=== PATIENT | female | born 1985 | race Caucasian/White ===

== ENCOUNTER 2016-03-09 07:19 | Emergency (ER) | payer OTHER ==
[~2016-03-09 07:19] MED LIST: ALBU8I INH; PREN0.01 PO
--- NOTE | 2016-03-09 08:32 | HHI.HP ---
HPI Chief Complaint Contractions Travel History International Travel<30 Days: No Contact w/Intl Traveler<30Days: No Known Affected Area: No History of Present Illness HPI 31 y/o at 39/2 weeks gestation determined by LMP, presenting with contractions. The contraction-like pain started last night around 6 PM. She reports that it was a diffuse lower back pain that was constant. She said there was no persistent time interval between this pain. It was a dull achy pain, that started in her lower back and radiated into her lower pelvis. She endorses + FM, and denies any LOF or vaginal bleeding. She lost her mucus plug yesterday afternoon. No visual changes, CP, SOB, fevers/chills, or dysuria. She has been having headaches for the past 2 days, that are over her temporal lobes, and she also reports a "stiff neck." BP is at goal in OB triage. Para: 2 : 0 History Past Medical History Narrative Medical Asthma Medical History: Denies Significant Hx Obstetric History Obstetric History 1 previous Past Surgical History Narrative Surgical Tonsillectomy Family History Family History: Negative Social History Alcohol Use: No Tobacco Use: Yes (approximately 5 cigarettes daily throughout her ) Substance Abuse: No Allergies-Medications (Allergen,Severity, Reaction): Coded Allergies: Doxycycline (Verified Allergy, Mild, 07/10/15) Home Meds Reported Medications Vitamins 1 Tab PO DAILY 07/10/15 Albuterol Sulfate 8 GM Inhaler (Ventolin Hfa)8 Gm Aero2 Puff INH Q4 PRN ( WHEEZING) #1 BOX * SHAKE WELL BEFORE USE * 07/10/15 Physical Exam Narrative GENERAL: Right pupil 2 mm in size, left pupil 8 mm in size. Appears comfortable. SKIN: Warm and dry. HEAD: Normocephalic and atraumatic. EYES: No scleral icterus. No injection or drainage. ENT: No nasal drainage noted. Mucous membranes pink. Airway patent. NECK: Supple, trachea midline. No JVD. CARDIOVASCULAR: Regular rate and rhythm without murmurs, gallops, or rubs. RESPIRATORY: Breath sounds equal bilaterally. No accessory muscle use. BREASTS: Bilateral exam showed no masses , no retractions, no nipple discharge. ABDOMEN/GI: Abdomen soft, non-tender, bowel sounds present, no rebound, no guarding Gravid to 39 weeks size GENITOURINARY: External Genitalia: intact and normal in appearance Cervix: 1 cm Effacement: 70% Station: -1 Presentation: vertex Membranes: intact Uterine Contractions: occassional FHT's: Category: 1 Baseline: 140 Reactive: yes Variability: moderate Decels: none EXTREMITIES: No cyanosis or edema. BACK: Nontender without obvious deformity. No CVA tenderness. NEUROLOGICAL: Awake and alert. Motor and sensory grossly within normal limits. Five out of 5 muscle strength in all muscle groups. Normal speech. Assessment/Plan Problem List: (1) False labor after 37 completed weeks of gestation Assessment and Plan 31 y/o at 39/2 weeks gestation presenting with contractions. IUP - at 39/2 weeks Category 1 tracing Cervix 1 cm, 70% effaced, -2 station [place]: occasional contractions Impression: Likely Bruno-Villafana contractions, false labor. Plan: * NST, reassuring * Check U/A * Labor precautions * PO hydration * Tylenol PRN headaches, lower back pain wdw Coleman Peacock MD R2 Mar 09, 2016 08:32
--- NOTE | 2016-03-09 09:29 | PD ---
HPI Chief Complaint Contractions Travel History International Travel<30 Days: No Contact w/Intl Traveler<30Days: No Known Affected Area: No History of Present Illness HPI 31 y/o at 39/2 weeks gestation determined by LMP, presenting with contractions. The contraction-like pain started last night around 6 PM. She reports that it was a diffuse lower back pain that was constant. She said there was no persistent time interval between this pain. It was a dull achy pain, that started in her lower back and radiated into her lower pelvis. She endorses + FM, and denies any LOF or vaginal bleeding. She lost her mucus plug yesterday afternoon. No visual changes, CP, SOB, fevers/chills, or dysuria. She has been having headaches for the past 2 days, that are over her temporal lobes, and she also reports a "stiff neck." BP is at goal in OB triage. History Past Medical History Narrative Medical Asthma Obstetric History Obstetric History x 1 Past Surgical History Narrative Surgical Tonsillectomy Family History Family History: Negative Social History Alcohol Use: No Tobacco Use: Yes (5 cigarettes daily) Substance Abuse: No Allergies-Medications (Allergen,Severity, Reaction): Coded Allergies: Doxycycline (Verified Allergy, Mild, 07/10/15) Home Meds Reported Medications Vitamins 1 Tab PO DAILY 07/10/15 Albuterol Sulfate 8 GM Inhaler (Ventolin Hfa)8 Gm Aero2 Puff INH Q4 PRN ( WHEEZING) #1 BOX * SHAKE WELL BEFORE USE * 07/10/15 Physical Exam Narrative GENERAL: Right pupil 2 mm in size, left pupil 8 mm in size. Appears comfortable. SKIN: Warm and dry. HEAD: Normocephalic and atraumatic. EYES: No scleral icterus. No injection or drainage. ENT: No nasal drainage noted. Mucous membranes pink. Airway patent. NECK: Supple, trachea midline. No JVD. CARDIOVASCULAR: Regular rate and rhythm without murmurs, gallops, or rubs. RESPIRATORY: Breath sounds equal bilaterally. No accessory muscle use. BREASTS: Bilateral exam showed no masses , no retractions, no nipple discharge. ABDOMEN/GI: Abdomen soft, non-tender, bowel sounds present, no rebound, no guarding Gravid to 39 weeks size GENITOURINARY: External Genitalia: intact and normal in appearance Cervix: 1 cm Effacement: 70% Station: -1 Presentation: vertex Membranes: intact Uterine Contractions: occassional FHT's: Category: 1 Baseline: 140 Reactive: yes Variability: moderate Decels: none EXTREMITIES: No cyanosis or edema. BACK: Nontender without obvious deformity. No CVA tenderness. NEUROLOGICAL: Awake and alert. Motor and sensory grossly within normal limits. Five out of 5 muscle strength in all muscle groups. Normal speech. Data Data Orders Vital Signs (Adult) .ON ADMISSION (03/09/16 08:41) ^ Labor Status (03/09/16 08:41) Urinalysis - C+S If Indicated (03/09/16 08:41) ^ Non Stress Test (03/09/16 08:41) ^ Heart DANA.QSHIFT (03/09/16 08:41) ^ Heart DANA.QSHIFT (03/09/16 08:41) MDM Medical Record Reviewed: Yes Plan 31 y/o at 39/2 weeks gestation presenting with contractions. IUP - at 39/2 weeks Category 1 tracing Cervix 1 cm, 70% effaced, -2 station [place]: occasional contractions Impression: Likely Pan-Villafana contractions, false labor. Plan: * NST, reassuring * Check U/A * Labor precautions * PO hydration * Tylenol PRN headaches, lower back pain wdw Dr. Zimmerman Disposition: 01 DISCHARGE HOME Condition: Good Coleman Perea MD R2 Mar 09, 2016 09:29
[2016-03-09 10:28] LABS: BLOOD, URINE MOD (NEG); GLUCOSE,URINE NEG (NEG); KETONE, URINE NEG (NEG); NITRITE,URINE NEG (NEG); URINE COLOR YELLOW (YELLW/STRAW)
[2016-03-09 10:32] LABS: BACTERIA, URINE FEW /hpf; CALCIUM OXALATE CRYSTALS,URINE FEW /hpf; MUCUS URINE MOD /lpf (OCC); SQUAMOUS EPITHELIAL CELL URINE 3 /hpf (0-5)
[2016-03-09 10:33] LABS: COMMENT (UR) CULT NOT INDICATED; CULTURE IF INDICATED CULT NOT INDICATED
== END 2016-03-09 11:07 | disposition home or self-care (01) ==
LOC: HOBED 07:19
DX: O47.1 False labor at or after 37 completed weeks of gestation (principal); Z3A.39 39 weeks gestation of pregnancy
CPT/HCPCS: 59025; 81001

== ENCOUNTER 2016-03-10 19:56 | Inpatient (IN) | payer OTHER ==
[~2016-03-10] VITALS: Ht 152.4 cm; Wt 73.9 kg
--- NOTE | 2016-03-10 20:47 | HHI.HP ---
History & Physical H&P HPI Travel History International Travel<30 Days: No Contact w/Intl Traveler<30Days: No Known Affected Area: No History of Present Illness HPI This patient is a 31-year-old 2 para 0 presently at 39 weeks and 3 days she presents with the chief complaint of spontaneous rupture of membranes at 7: 30 clear fluid with subsequent onset of regular contractions every 2 minutes care with HOGA course is significant for positive group B strep she has a history of Suboxone however is presently on no medication baseline blood pressure 102/69 about a 50 pound weight gain her EDC is March 14, 2016 [place] positive rubella immune GC Chlamydia negative hepatitis-negative HIV-negative History (Limited) History Past Medical History Narrative Medical Allergy to doxycycline she has a history of asthma Obstetric History Obstetric History VIP 1 Past Surgical History Narrative Surgical Tonsillectomy D&C 4 VIP Family History Family History: Negative Social History Alcohol Use: No Tobacco Use: Yes (half a pack per day) Substance Abuse: No Allergies-Medications Allergies-Medications (Allergen,Severity, Reaction): Coded Allergies: Doxycycline (Verified Allergy, Mild, 07/10/15) Home Meds Reported Medications Vitamins 1 Tab PO DAILY 07/10/15 Albuterol Sulfate 8 GM Inhaler (Ventolin Hfa)8 Gm Aero2 Puff INH Q4 PRN ( WHEEZING) #1 BOX * SHAKE WELL BEFORE USE * 07/10/15 ROS Review of Systems Gastrointestinal: Abdominal Pain (contractions every 2 minutes) Genitourinary: Other (clear fluid per vagina) Physical Exam Physical Exam Narrative GENERAL: Well-nourished, well-developed patient. Alert oriented 3 and cooperative in mild distress secondary to uterine contractions CARDIOVASCULAR: Regular rate and rhythm without murmurs, gallops, or rubs. RESPIRATORY: Breath sounds equal bilaterally. No accessory muscle use. ABDOMEN/GI: Gravid term estimated weight 7-1/2 pounds Gravid to [-] weeks size term Fundal Height: [-] GENITOURINARY: External Genitalia: intact and normal in appearance BUS glands: [-] Cervix: [-] Midline Dilatation: [-] 4 cm Effacement: [-] 90% Station: [-] -1 station Presentation: [-] Vertex Membranes: ruptured] clear fluid Uterine Contractions: [-] Every 2 minutes FHT's: Category: [-]1 Baseline: [-] 140 Reactive: [-] + Variability: [-] Moderate wvrn-sm-lgbu variability Decels: [-] 0 EXTREMITIES: No cyanosis or edema. 2+ reflexes BACK: Nontender without obvious deformity. No CVA tenderness. NEUROLOGICAL: Awake and alert. Motor and sensory grossly within normal limits. Five out of 5 muscle strength in all muscle groups. Normal speech. Data Data Data Vital Signs Reviewed: Yes (blood pressures 139/78 pulse is 100 temperatures 98.6) Orders Ob (2e) Additional Admit Info (03/10/16 20:35) MDM MDM Medical Record Reviewed: Yes Interpretation(s) 31-year-old at 39 weeks and 3 days Premature rupture of membranes Active labor Group B strep positive Plan Admit External monitoring IV fluid hydration CBC type and screen Urine drug screen Epidural after preload Penicillin coverage for group B strep Notify Dr. Brar Physician Communication Spoke with Dr. Brar he is aware of the patient's admission Diagnosis Diagnosis: Primary Impression: Premature labor with rupture of membranes in third trimester Additional Impressions: Cigarette smoker one half pack a day or less History of drug use Positive testing for group B Streptococcus Albina Zimmerman MD Mar 10, 2016 20:47 Albina Zimmerman MD Mar 10, 2016 20:47
[2016-03-10] MEDS ORDERED: LACTATED RINGER'S 1000 ML INJ 1,000 ML IV PRN (21:23)
[2016-03-10] MEDS: LACTATED RINGER'S 1000 ML INJ 1,000 ML IV SCH ×2 (21:23→23:41)
[2016-03-10] MEDS ORDERED: CITRIC ACID-SODIUM CITRATE LIQ 30 ML UDC PO SCH (21:30)
[2016-03-10] MEDS ORDERED: OXYTOCIN 30 UNITS-500ML PREMIX 500 ML IV ONE (21:30)
[2016-03-10] MEDS ORDERED: ONDANSETRON HCL 4 MG/2 ML VIAL IV PRN (21:30)
[2016-03-10] MEDS ORDERED: SODIUM CHLORID 0.9% 500 ML INJ 500 ML IV PRN (21:30)
[2016-03-10] MEDS ORDERED: PENICILLIN G POTASSIUM INJ 5,000,000 UNITS in SODIUM CHLORIDE 0.9% INJ 100 ML IV ONE (21:30)
[2016-03-10] MEDS ORDERED: MINERAL OIL 10 ML VIAL TOPICAL PRN (21:30)
[2016-03-10] MEDS ORDERED: LIDOCAINE HCL 1% 50 ML VIAL INFIL PRN (21:30)
[2016-03-10] MEDS ORDERED: LIDOCAINE HCL 1% 50 ML VIAL I-DERMAL PRN (21:30)
[2016-03-10] MEDS ORDERED: SODIUM CHLOR 0.9% 1000 ML INJ 1,000 ML IV PRN (21:43)
[2016-03-10] MEDS ORDERED: fentaNYL 2MCG-BUPIV 0.125% INJ 100 ML ONE (21:51)
[2016-03-10 21:54] LABS: AUTOMATED NEUTROPHIL # 7.9 TH/MM3 (1.8-7.7); BASOPHIL % 0.1 % (0.0-2.0); EOSINOPHIL # 0.1 TH/MM3 (0-0.4); EOSINOPHIL % 1.1 % (0.0-4.0); HEMATOCRIT 32.2 % (35.0-46.0); HEMO FLAGS DIFF FINAL; LYMPH % 17.7 % (9.0-44.0); LYMPHOCYTE # 1.9 TH/MM3 (1.0-4.8); MEAN CELL VOLUME 81.7 FL (80.0-100.0); MEAN CORPUSCULAR HEMOGLOBIN 27.8 PG (27.0-34.0); MEAN CORPUSCULAR HGB CONC 34.1 % (32.0-36.0); MONO % 8.5 % (0.0-8.0); NEUT % 72.6 % (16.0-70.0); PLATELET COUNT 209 TH/MM3 (150-450); RED BLOOD COUNT 3.94 MIL/MM3 (4.00-5.30); RED CELL DISTRIBUTION WIDTH 13.5 % (11.6-17.2); WHITE BLOOD COUNT 10.8 TH/MM3 (4.0-11.0)
[2016-03-11] MEDS ORDERED: PENICILLIN G POTASSIUM INJ 2,500,000 UNITS in SODIUM CHLORIDE 0.9% INJ 100 ML IV SCH (01:30)
[2016-03-11] MEDS ORDERED: SODIUM CHLORIDE 0.9% FLUSH 5 ML FLUSH IV PRN (05:15)
[2016-03-11] MEDS ORDERED: ACETAMINOPHEN 325 MG TAB PO PRN (05:15)
[2016-03-11] MEDS ORDERED: BENZOCAINE 20% TOPICAL SPRAY 60 ML CAN TOPICAL PRN (05:15)
[2016-03-11] MEDS ORDERED: ZOLPIDEM TARTRATE 5 MG TAB PO PRN (05:15)
[2016-03-11] MEDS ORDERED: OXYTOCIN 10 UNIT/ML AMP XX ONE (05:15)
[2016-03-11] MEDS ORDERED: WITCH HAZEL 50%/GLYCERIN 12.5% 40 PAD JAR TOPICAL PRN (05:15)
[2016-03-11] MEDS ORDERED: ALUMINUM/MAGNESIUM/SIMETH 30 ML CUP PO PRN (05:15)
[2016-03-11] MEDS ORDERED: ONDANSETRON ODT 4 MG TAB PO PRN (05:15)
--- NOTE | 2016-03-11 05:19 | PD.OB.DELI ---
Anesthesia: Epidural Vaginal Delivery: Normal Presentation: Occiput anterior Nuchal Cord: x2 : Male One Minute : 8 Five Minute : 9 Weight: 6# 4 oz Care: Suctioned Placenta: Spontaneous delivery, Intact, 3 vessel cord Laceration: Vaginal laceration, 2 deg Repair: Sandeep Bustamante MD Mar 11, 2016 05:19
--- NOTE | 2016-03-11 05:20 | HHI.DS ---
Admission Date Mar 10, 2016 at 20:35 Admitting Diagnosis Diagnosis: Vaginal Delivery: Normal : Male Brief History This patient is a 31-year-old 2 para 0 presently at 39 weeks and 3 days she presents with the chief complaint of spontaneous rupture of membranes at 7: 30 clear fluid with subsequent onset of regular contractions every 2 minutes care with HOGA course is significant for positive group B strep she has a history of Suboxone however is presently on no medication baseline blood pressure 102/69 about a 50 pound weight gain her EDC is March 14, 2016 [place] positive rubella immune GC Chlamydia negative hepatitis-negative HIV-negative Pt Condition on Discharge: Good Discharge Disposition: Discharge Home Discharge Instructions Diet Instructions: As Tolerated, No Restrictions Activities You Can Perform: Shower Only-No Bath Activities to Avoid: Driving for 24 hrs, Prolonged Standing, Strenuous Activity , Sexual Activity Sandeep rBar MD Mar 11, 2016 05:20
[2016-03-11] MEDS ORDERED: NO SYSTEM NARCOTICS XX PRN (06:00)
[2016-03-11] MEDS ORDERED: ePHEDrine/NS 50 MG/5 ML SYR IV PRN (06:00)
[2016-03-11] MEDS ORDERED: DO NOT ADMINISTER ANTICOAGULANTS XX PRN (06:00)
[2016-03-11] MEDS ORDERED: fentaNYL 2MCG-BUPIV 0.125% INJ 100 ML EPIDURAL SCH (06:00)
[2016-03-11] MEDS: IBUPROFEN 600 MG TAB PO PRN ×4 (06:24→22:14)
[2016-03-11] MEDS: DOCUSATE SODIUM 50 MG/SENNA 8.6 MG TAB PO PRN ×2 (06:24→21:20)
[2016-03-11] MEDS ORDERED: MEASLES, MUMPS, RUBELLA VACCINE 0.5 ML VIAL SQ ONE (16:00)
[2016-03-11] MEDS ORDERED: DIPHTH/TETANUS/ACEL PERTUSSIS (BOOSTER) 0.5 ML VIAL/PFS IM ONE (16:00)
[2016-03-11] MEDS: SODIUM CHLORIDE 0.9% FLUSH 5 ML FLUSH IV SCH (21:00)
[2016-03-12] MEDS: IBUPROFEN 600 MG TAB PO PRN ×3 (07:56→22:08)
--- NOTE | 2016-03-12 08:30 | HHI.OB ---
Subjective Post Day: 1 Remarks Stable, doing well Objective Objective Remarks GENERAL: Well-nourished, well-developed patient. CARDIOVASCULAR: Regular rate and rhythm without murmurs, gallops, or rubs. RESPIRATORY: Breath sounds equal bilaterally. No accessory muscle use. ABDOMEN/GI: Abdomen soft, non-tender. Fundus: Firm, non-tender at umbilicus. GENITOURINARY: Light to moderate bleeding. EXTREMITIES: No cyanosis or edema, non-tender, without signs of DVT. Medications and IVs Current Medications Medications (Trade) Dose Ordered Sig/Laura Route Start Time Stop Time Status Last Admin Lactated Ringer's 1,000 ml @ 125 mls/hr Q8H IV 03/10/16 21:23 03/10/16 23:41 Lactated Ringer's 1,000 ml @ 3,000 mls/hr Q20M PRN IV 03/10/16 21:23 03/10/16 21:38 (NS 1000 ml Inj) 1,000 ml @ 100 mls/hr Q10H PRN IV 03/10/16 21:43 (Zofran Inj) 4 mg Q6H PRN IV 03/10/16 21:30 03/10/16 22:35 (fentaNYL INJ) 50 mcg Q1H PRN IV PUSH 03/10/16 21:30 Fentanyl Citrate 100 mcg 100 mcg Q1H PRN IV PUSH 03/10/16 21:30 (Pfizerpen-G Inj/ NS Inj) 100 ml @ 200 mls/hr Q4H IV 03/11/16 01:30 03/11/16 01:14 (Muri-Lube Oil) 10 ml UNSCH PRN TOPICAL 03/10/16 21:30 (NS Flush) 2 ml BID IV 03/11/16 09:00 (NS Flush) 2 ml UNSCH PRN IV 03/11/16 05:15 (Tylenol) 650 mg Q4H PRN PO 03/11/16 05:15 03/11/16 21:20 (Motrin) 600 mg Q6H PRN PO 03/11/16 05:15 03/12/16 07:56 (Americaine 20% Top Spr) 1 spray Q4H PRN TOPICAL 03/11/16 05:15 03/11/16 07:52 (Tucks Pads) 1 applic QID PRN TOPICAL 03/11/16 05:15 03/11/16 07:52 (Isela-Colace) 2 tab Q12H PRN PO 03/11/16 05:15 03/11/16 21:20 (Ambien) 5 mg HS PRN PO 03/11/16 05:15 (Mag-Al Plus Susp Liq) 15 ml Q8H PRN PO 03/11/16 05:15 Ondansetron HCl 4 mg 4 mg Q6H PRN PO 03/11/16 05:15 (fentaNYL 2MCG-BUPIV 0.125% INJ) 100 ml @ 0 mls/hr TITRATE EPIDURAL 03/11/16 06:00 (Flu (Quadrivalent) Vaccine Inj) 0.5 ml ONCE ONCE IM 03/12/16 10:00 03/12/16 10:01 Assessment/Plan Assessment and Plan PPD#1, stable, plan discharge for am tomorrow Discharge Planning routine Sandeep Brar MD Mar 12, 2016 08:30
[2016-03-12] MEDS ORDERED: INFLUENZA VIRUS VACCINE (QUADRIVALENT) 0.5 ML SYR IM ONE (10:00)
[2016-03-12] MEDS: DOCUSATE SODIUM 50 MG/SENNA 8.6 MG TAB PO PRN (15:29)
[2016-03-12 19:30] VITALS: BP 111/70; PULSE 77; RESP 18; TEMP 98.6
[2016-03-12] MEDS: SODIUM CHLORIDE 0.9% FLUSH 5 ML FLUSH IV SCH (21:00)
[2016-03-13] MEDS: IBUPROFEN 600 MG TAB PO PRN ×2 (04:37→14:05)
[2016-03-13 08:30] VITALS: BP 121/76; PULSE 73; RESP 18; TEMP 97.8
--- NOTE | 2016-03-13 10:58 | HHI.OB ---
Subjective Post Day: 2 Remarks PPD#2; Doing well, plan discharge today Objective Vitals/I&O Vital Signs Date Time Temp Pulse Resp B/P Pulse Ox O2 Delivery O2 Flow Rate FiO2 03/13/16 08:30 73 18 121/76 03/13/16 08:30 97.8 03/12/16 19:30 98.6 77 18 111/70 Objective Remarks GENERAL: Well-nourished, well-developed patient. CARDIOVASCULAR: Regular rate and rhythm without murmurs, gallops, or rubs. RESPIRATORY: Breath sounds equal bilaterally. No accessory muscle use. ABDOMEN/GI: Abdomen soft, non-tender. Fundus: Firm, non-tender at umbilicus. GENITOURINARY: Light to moderate bleeding. EXTREMITIES: No cyanosis or edema, non-tender, without signs of DVT. Medications and IVs Current Medications Medications (Trade) Dose Ordered Sig/Laura Route Start Time Stop Time Status Last Admin Lactated Ringer's 1,000 ml @ 125 mls/hr Q8H IV 03/10/16 21:23 03/10/16 23:41 Lactated Ringer's 1,000 ml @ 3,000 mls/hr Q20M PRN IV 03/10/16 21:23 03/10/16 21:38 (NS 1000 ml Inj) 1,000 ml @ 100 mls/hr Q10H PRN IV 03/10/16 21:43 (Zofran Inj) 4 mg Q6H PRN IV 03/10/16 21:30 03/10/16 22:35 (fentaNYL INJ) 50 mcg Q1H PRN IV PUSH 03/10/16 21:30 Fentanyl Citrate 100 mcg 100 mcg Q1H PRN IV PUSH 03/10/16 21:30 (Pfizerpen-G Inj/ NS Inj) 100 ml @ 200 mls/hr Q4H IV 03/11/16 01:30 03/11/16 01:14 (Muri-Lube Oil) 10 ml UNSCH PRN TOPICAL 03/10/16 21:30 (NS Flush) 2 ml BID IV 03/11/16 09:00 (NS Flush) 2 ml UNSCH PRN IV 03/11/16 05:15 (Tylenol) 650 mg Q4H PRN PO 03/11/16 05:15 03/11/16 21:20 (Motrin) 600 mg Q6H PRN PO 03/11/16 05:15 03/13/16 04:37 (Americaine 20% Top Spr) 1 spray Q4H PRN TOPICAL 03/11/16 05:15 03/11/16 07:52 (Tucks Pads) 1 applic QID PRN TOPICAL 03/11/16 05:15 03/11/16 07:52 (Isela-Colace) 2 tab Q12H PRN PO 03/11/16 05:15 03/12/16 15:29 (Ambien) 5 mg HS PRN PO 03/11/16 05:15 (Mag-Al Plus Susp Liq) 15 ml Q8H PRN PO 03/11/16 05:15 Ondansetron HCl 4 mg 4 mg Q6H PRN PO 03/11/16 05:15 (fentaNYL 2MCG-BUPIV 0.125% INJ) 100 ml @ 0 mls/hr TITRATE EPIDURAL 03/11/16 06:00 Assessment/Plan Assessment and Plan PPD#2, stable, plan discharge for today Discharge Planning routine Sandeep Brar MD Mar 13, 2016 10:58
--- NOTE | 2016-03-13 11:19 | PD.CIRC ---
Circumcision Procedure Note Procedure: Circumcision Pre-procedure diagnosis: circumcision Post-procedure diagnosis: circumcision Informed Consent: The risks, benefits, indications, potential complications, and alternatives were explained to the patient/family and informed consent obtained. The baby was brought to the procedure room where a time-out was done to ID the patient and the procedure. Performing Physician: Sandeep Brar Anesthesia used: 1% lidocaine injected Type of block: dorsal penile block Device used: Mogen Description: The baby was prepped and draped in a sterile fashion. The procedure followed standard technique. The baby tolerated the procedure well without complication. Findings: Normal genitalia Estimated blood loss: none Specimen: Sandeep Velazco MD Mar 13, 2016 11:19
== END 2016-03-13 15:53 | disposition home or self-care (01) | DRG 775 ==
LOC: HOBED 19:56 → H2EA 20:35 → H1EA 03-11 07:39
PROVIDERS: ADMIT Obstetrics & Gynecology; ATTEND Obstetrics & Gynecology
PROC: 10E0XZZ Delivery of Products of Conception, External Approach (ICD-10-PCS; principal; 2016-03-11)
PROC: 0KQM0ZZ Repair Perineum Muscle, Open Approach (ICD-10-PCS; 2016-03-11)
DX: O99.334 Smoking (tobacco) complicating childbirth (principal); F17.210 Nicotine dependence, cigarettes, uncomplicated; O99.52 Diseases of the respiratory system complicating childbirth; J45.909 Unspecified asthma, uncomplicated; O99.824 Streptococcus B carrier state complicating childbirth; O69.81X0 Labor and delivery complicated by cord around neck, without compression, not applicable or unspecified; O71.4 Obstetric high vaginal laceration alone; Z37.0 Single live birth; Z3A.39 39 weeks gestation of pregnancy; Z28.82 Immunization not carried out because of caregiver refusal; Z88.1 Allergy status to other antibiotic agents
CPT/HCPCS: 59025; 81001; 84112; 85025; 86900; 86901; 99285; J2405; J2540; J2590; J7120